=== PATIENT | female | born 1985 | race Asian ===

== ENCOUNTER 2023-07-03 21:16 | Outpatient (REF) | payer BC, SELFPAY ==
[2023-07-10 13:08] LABS: Age Gdln ACOG Testing Note (.); HPV Aptima Negative (Negative); IGP, Aptima HPV, rfx 16/18,45 Note (.)
== END 2023-07-03 21:17 | disposition home or self-care (01) ==
LOC: LAB 21:16
PROVIDERS: Visit Provider Obstetrics & Gynecology
DX: Z01.419 Encounter for gynecological examination (general) (routine) without abnormal findings (principal)
CPT/HCPCS: 87624; G0145

== ENCOUNTER 2024-07-08 21:42 | Outpatient (REF) | payer BC, SELFPAY | END 2024-07-08 21:43 | disposition home or self-care (01) | LOC: LAB 21:42 | PROVIDERS: Visit Provider Obstetrics & Gynecology | DX: Z01.419 Encounter for gynecological examination (general) (routine) without abnormal findings (principal) | CPT/HCPCS: 87624; 88175 ==

== ENCOUNTER 2025-07-13 19:13 | Outpatient (REF) | payer BC, SELFPAY ==
--- OUTSIDE RECORDS SUMMARY | 2025-07-13 13:00 | XMS_ITS | Encounter Summary ---
Author Organization [facility] Address [address] [place] [address] Care Team Providers Care Middle [employer] Technology Teacher Name Role Phone Unavailable Primary Care Provider Unavailabl e Reason for Visit * Reason Comments Well Women Visit Encounter Details Date Type Department Care Team (Late st Contact Info) Description 07/13/2025 1:00 PM EDT Office Visit [facility] [address] [facility] [place] [phone] Derrick Burnette DO [address] [facility] [address] [place] [id number] Well woman exam with routine gynecological exam Social History Tobacco Use Types Packs/Day Years Used Date Smoking Tobacco: Never Smokeless Tobacco: Never Alcohol Use Standard Drinks/Week Comments Never 0 (1 standard drink = 0.6 oz pur e alcohol) Caffeine: 1-2 cups/day Comments No Sex and Gender Information Value Date Recorded Sex Assigned at Female 07/03/2023 2:18 PM EDT Legal Sex Female 8:22 PM EDT Gender Identity Female 07/03/2023 2:18 PM EDT Sexual Orientation Not on file documented as of this encounter Last Filed Vital Signs Vital Sign Reading Time Taken Comments Blood Pressure 100/70 07/13/2025 1:20 PM EDT Pulse - - Temperature - - Respiratory Rate - - Oxygen Saturation - - Inhaled Oxygen Concentration - - Weight 56.2 kg (123 lb 12.8 oz) 07/13/2025 1:20 PM EDT Height - - Body Mass Index 21.93 07/08/2024 1:04 PM EDT documented in this encounter Progress Notes * MAHI Fink - 07/13/2025 1:00 PM EDT Reason for Appointment: Patient ID: Clover Macias is a 40 y.o. female who presents for Well Women Visit Patient presents today for Annual Exam. MEDICATIONS Current Outpatient Medications Medication Instructions Jencycla 0.35 MG tablet TAKE 1 TABLET BY MOUTH DAILY AT THE SAME TIME EACH DAY ALLERGIES No Known Allergies PROBLEMS Active Ambulatory Problems Diagnosis Date Noted No Active Ambulatory Problems Resolved Ambulatory Problems Diagnosis Date Noted No Resolved Ambulatory Problems Past Medical History: Diagnosis Date Condyloma H/O human papillomavirus infection History of abnormal cervical Pap smear 2019 HISTORY PAST MEDICAL HISTORY SOCIAL HISTORY Past Medical History: Diagnosis Date Condyloma H/O human papillomavirus infection History of abnormal cervical Pap smear 2019 Social History Tobacco Use Smoking status: Never Smokeless tobacco: Never Substance Use Topics Alcohol use: Never Comment: Caffeine: 1-2 cups/day Drug use: Never FAMILY HISTORY No family history on file. SURGICAL HISTORY Past Surgical History: Procedure Laterality Date PAP SMEAR 2019 Normal REVIEW OF SYSTEMS Review of Systems: Review of Systems Constitutional: Negative. HENT: Negative. Eyes: Negative. Respiratory: Negative. Cardiovascular: Negative. Gastrointestinal: Negative. Genitourinary: Negative. Musculoskeletal: Negative. Skin: Negative. Neurological: Negative. All other systems reviewed and are negative. Hematological: Negative. Endocrine: Negative. Allergic/Immunologic: Negative. OBJECTIVE Objective: Physical Exam Constitutional: Appearance: Normal appearance. Genitourinary: Right Adnexa: not tender and no mass present. Left Adnexa: not tender and no mass present. No cervical discharge. Breasts: Breasts are soft. Right: Normal. Left: Normal. HENT: Head: Normocephalic. Nose: Nose normal. Mouth/Throat: Mouth: Mucous membranes are moist. Cardiovascular: Rate and Rhythm: Normal rate. Pulmonary: Effort: Pulmonary effort is normal. Abdominal: General: Bowel sounds are normal. Palpations: Abdomen is soft. Musculoskeletal: General: Normal range of motion. Cervical back: Normal range of motion. Neurological: General: No focal deficit present. Mental Status: She is alert. Skin: General: Skin is warm and dry. Psychiatric: Mood and Affect: Mood normal. Vitals and nursing note reviewed. Exam conducted with a continuous crusher operator present. Vitals: Estimated body mass index is 21.93 kg/m?? as calculated from the following: Height as of 24: 5' 3 . Weight as of this encounter: 123 lb 12.8 oz. BP: 100/70 No LMP recorded (within weeks). ASSESSMENT & PLAN ICD-10-CM 1. Well woman exam with routine gynecological exam Z01.419 Pap Smear HPV DNA probe, amplified Annual Exam: Patient presents today for an annual exam. Patient states she is doing well and has no complaints. Pap was obtained without difficulty. Orders Placed This Encounter Procedures HPV DNA probe, amplified Follow Up: Patient is to return in one year for annual unless needed otherwise. Documented by MAHI Fink documented in this encounter Plan of Treatment Upcoming Encounters Date Type Department Care Team (Late st Contact Info) Description 07/18/2026 2:00 PM EDT Procedure Visit [facility] [address] [facility] [place] [address] Derrick Burnette DO [address] [place] [address] Scheduled Orders Name Type Priority Associated Diagnoses Orde r Schedule Pap Smear Pathology and Cytology Routine Well woman exam with routine gynecological exam Ordered: 07/13/2025 HPV DNA probe, amplified Microbiology Routine Well woman exam with routine gynecological exam Ordered: 07/13/2025 documented as of this encounter Visit Diagnoses Diagnosis Well woman exam with routine gynecological exam Routine gynecological examination documented in this encounter
--- OUTSIDE RECORDS SUMMARY | 2025-07-13 19:16 | XMS_ITS | Encounter Summary ---
Author Organization [facility] Address [address] [place] [address] Care Team Providers Care Commercial Drone Pilot Name Role Phone Unavailable Primary Care Provider Unavailabl e Encounter Details Date Type Department Care Team (Late Contact Info) Description 07/13/2025 Bamboo flowsheet [facility] [address] [place] [address] Derrick Burnette, DO [address], [place] [address] Social History Tobacco Use Types Packs/Day Years [...] on file documented as of this encounter Plan of Treatment Upcoming Encounters Date Type Department Care Team (Late st Contact Info) Description 07/18/2026 2:00 PM EDT Procedure Visit [facility] [address] [place] [phone] Derrick Burnette, DO [address], [id number] documented as of this encounter Visit Diagnoses Not on filedocumented in this encounter
--- OUTSIDE RECORDS SUMMARY | 2025-07-13 19:16 | XMS_ITS | Encounter Summary ---
Author Organization [facility] Address [address] [place] [address] Care Team Providers Care Disaster Recovery Analyst Name Role Phone Unavailable Primary Care Provider Unavailabl e Encounter Details Date Type Department Care Team (Late Contact Info) Description 06/30/2024 Orders Only [facility] [address] [place] [address] Mary Diaz LPN [address] [employer] [facility] [place] [facility]11 Social History Tobacco Use Types Packs/Day Years Used Date Smoking Tobacco: Never Alcohol Use Standard Drinks/Week Comments Never 0 (1 standard drink = 0.6 oz pur e alcohol) Caffeine: 1-2 cups/day Comments Unknown Sex and Gender Information Value Date Recorded Sex Assigned at Female 07/03/2023 2:18 PM EDT Legal Sex Female 8:22 PM EDT Gender Identity Female 07/03/2023 2:18 PM EDT Sexual Orientation Not on file documented as of this encounter Plan of Treatment Upcoming Encounters Date Type Department Care Team (Late st Contact Info) Description 07/18/2026 2:00 PM EDT Procedure Visit [facility] [address] [place] [address] Derrick Burnette DO [address] [facility] [place], [place] [id number] documented as of this encounter Procedures Procedure Name Priority Date/Time Associated Diagnosis Comments PAP SMEAR Routine 07/03/2023 12:00 AM EDT documented in this encounter Results * Pap Smear (07/03/2023 12:00 AM EDT) Swab Cervical swab / Unknown us [facility] CYTOLOGY ORDERABLES Final Result EXTERNAL LAB documented in this encounter Visit Diagnoses Not on filedocumented in this encounter
--- OUTSIDE RECORDS SUMMARY | 2025-07-13 19:16 | XMS_ITS | Clinical Summary ---
Author Organization [facility] Address [address] [place] [address] Care Team Providers Care Hvac Service Tech Name Role Phone Unavailable Primary Care Provider Unavailabl e Allergies No known active allergies Medications Jencycla 0.35 MG tabletIndications :Well woman exam with routine gynecological exam TAKE 1 TABLET BY MOUTH DAILY AT THE SAME TIME EACH DAY 84 tablet 3 07/05/20 25 Active norethindrone (Micronor) 0.35 MG tabletIndications :Well woman exam with routine gynecological exam Take 1 tablet (0.35 mg) by mouth 1 (one) time each day at the same time 28 tablet 12 07/08/20 24 025 Discontinued Encounters Date Type Department Care Team Description 07/13/2025 1:00 PM [place] [address] Derrick Burnette, Well woman exam with routine gynecological exam 07/13/2025 Bamboo flowsheet [facility] [address] [place] [address] Derrick Burnette DO 07/12/2025 Travel 07/04/2025 Refill [facility] [address] [place] [address] Derrick Burnette DO Well woman exam with routine gynecological exam from Last 3 Months Social History Tobacco Use Types Packs/Day Years Used Date Smoking Tobacco: Never Smokeless Tobacco: Never Tobacco Cessation:Counseling Given: Not Answered Alcohol Use Standard Drinks/Week Comments Never 0 (1 standard drink = 0.6 oz pur e alcohol) Caffeine: 1-2 cups/day Comments No Sex and Gender Information Value Date Recorded Sex Assigned at Female 07/03/2023 2:18 PM EDT Legal Sex Female 8:22 PM EDT Gender Identity Female 07/03/2023 2:18 PM EDT Sexual Orientation Not on file Last Filed Vital Signs Vital Sign Reading Time Taken Comments Blood Pressure 100/70 07/13/2025 1:20 PM EDT Pulse - - Temperature - - Respiratory Rate - - Oxygen Saturation - - Inhaled Oxygen Concentration - - Weight 56.2 kg (123 lb 12.8 oz) 07/13/2025 1:20 PM EDT Height 160 cm (5' 3 ) 07/08/2024 1:04 PM EDT Body Mass Index 21.93 07/08/2024 1:04 PM EDT Plan of Treatment Upcoming Encounters Date Type Department Care Team (Late st Contact Info) Description 07/18/2026 2:00 PM EDT Procedure Visit [facility] [address] [facility] [place] [phone] Derrick Burnette DO [address] [facility] [address] [place] [place], [place] [id number] Health Maintenance Due Date Last Done Comments Influenza Vaccine (#1) 2025 12/02/2022, 2018 Pap Smear 07/03/2026 07/03/2023, 05/22/2016 Cervical Cancer Screening 07/17/2028 HPV/Cotest 07/17/2028 07/17/2023, 0601/2021, 04/26/2020, Additional history exists Procedures Procedure Name Priority Date/Time Associated Diagnosis Comments THINPREP PAP AND HPV MRNA E6/E7 W/RFL HPV 16,18/45 Routine 07/17/2023 2:07 PM EDT Well woman exam with routine gynecological exam PAP SMEAR Routine 07/03/2023 12:00 AM EDT from Last 3 Months or Most Recently Relevant to Health Maintenance Results * THINPREP PAP AND HPV MRNA E6/E7 W/RFL HPV 16,18/45 (07/17/2023 2:07 PM EDT) Derrick Burnette DO LAB BLOOD ORDERABLES Final Resul t EXTERNAL LAB * Pap Smear (07/03/2023 12:00 AM EDT) Swab Cervical swab / Unknown [facility] CYTOLOGY ORDERABLES Final Result EXTERNAL LAB from Last 3 Months or Most Recently Relevant to Health Maintenance Insurance [facility]
--- OUTSIDE RECORDS SUMMARY | 2025-07-13 19:16 | XMS_ITS | Encounter Summary ---
Author Organization [facility] Address [address] [place] [address] Care Team Providers Care Slab Tripper Name Role Phone Unavailable Primary Care Provider Unavailabl e Encounter Details Date Type Department Care Team (Latest Contact Info) Description 07/12/2025 Travel Social History Tobacco Use Types Packs/Day Years [...] 07/18/2026 2:00 PM EDT Procedure Visit [facility] [address] [place] [phone] Derrick Burnette DO [address] [facility] [address] [place], [facility]11 documented as of this encounter Visit Diagnoses Not on filedocumented in this encounter
--- OUTSIDE RECORDS SUMMARY | 2025-07-13 19:16 | XMS_ITS | Encounter Summary ---
Author Organization [facility] Address [address] [facility] [place] [address] Care Team Providers Care Chemistry Quality Control Analyst Name Role Phone Unavailable Primary Care Provider Unavailabl e Reason for Visit * Reason Comments Med Refill Encounter Details Date Type Department Care Team (Late Contact Info) Description 07/04/2025 [facility]ill [facility] [address] [facility] [place] [address] Derrick Burnette, DO [address], [place] [address] Well woman exam with routine gynecological exam [...] Encounters Date Type Department Care Team (Late Contact Info) Description 07/18/2026 2:00 PM EDT Procedure Visit [facility] [address] [place] [address] Derrick Burnette, DO [address], [facility]11 documented as of this encounter Visit Diagnoses Diagnosis Well woman exam with routine gynecological exam Routine gynecological examination documented in this encounter
--- OUTSIDE RECORDS SUMMARY | 2025-07-13 19:18 | XMS_ITS | CCD ---
Author Organization [facility] Care Team Providers Care Supervisor Matrix Name Role Phone YOMAIRA, DR BO Consulting Unavailable YOMAIRA, DR BO Attending Unavailable YOMAIRA, DR BO Admitting Unavailable YOMAIRA, DR BO Admitting Unavailable YOMAIRA, DR BO Attending Unavailable WEST, DR PERICO Varghese Consulting Unavailable YOMAIRA, DR BO Consulting Unavailable YOMAIRA, DR BO Consulting Unavailable YOMAIRA, DR BO Admitting Unavailable YOMAIRA, DR BO Attending Unavailable ZIEBER, DR GEOVANI Novak Consulting Unavailable YOMAIRA, DR BO Consulting Unavailable YOMAIRA, DR BO Admitting Unavailable YOMAIRA, DR BO Attending Unavailable YOMAIRA, DR BO Attending Unavailable YOMAIRA, DR BO Admitting Unavailable YOMAIRA, DR BO Consulting Unavailable YOMAIRA, DR BO Attending Unavailable YOMAIRA, DR BO Admitting Unavailable YOMAIRA, DR BO Attending Unavailable YOMAIRA, DR BO Admitting Unavailable WEST, DR PERICO Varghese Consulting Unavailable YOMAIRA, DR BO Consulting Unavailable MAHI MENDOZA Consulting Unavailable YOMAIRA, DR BO Attending Unavailable YOMAIRA, DR BO Admitting Unavailable YOMAIRA, DR BO Consulting Unavailable ZIEBER, DR GEOVANI Novak Consulting Unavailable MAHI MENDOZA Consulting Unavailable YOMAIRA, DR BO Attending Unavailable YOMAIRA, DR BO Admitting Unavailable MISC, DR DON Primary Care Unavailable YOMAIRA, DR BO Consulting Unavailable HARSH MARADIAGA Consulting Unavailable YOMAIRA, DR BO Procedure Practitioner Unavailab le YOMAIRA, DR BO Attending Unavailable YOMAIRA, DR BO Admitting Unavailable YOMAIRA, DR BO Consulting Unavailable NAY, DR GEOVANI Novak Consulting Unavailable YOMAIRA, DR BO Admitting Unavailable YOMAIRA, DR BO Attending Unavailable YOMAIRA, DR BO Consulting Unavailable YOMAIRA, DR BO Attending Unavailable YOMAIRA, DR BO Admitting Unavailable YOMAIRA, DR BO Consulting Unavailable YOMAIRA, DR BO Attending Unavailable YOMAIRA, DR BO Admitting Unavailable YOMAIRA, DR BO Consulting Unavailable YOMAIRA, DR BO Consulting Unavailable YOMAIRA, DR BO Admitting Unavailable YOMAIRA, DR BO Attending Unavailable YOMAIRA, BETZY Attending Unavailable Unavailable Primary Care Provider Unavailabl e Medications Current Medications Medication Drug Class(es) Dates Sig (Normalized) Sig (Original) norethindrone 0.35 mg oral tablet (3 sources) Start: 07-05-2025 take 1 tablet by mouth once daily Jencycla 0.35 MG tablet Indications: Well woman exam with routine gynecological exam TAKE 1 TABLET BY MOUTH DAILY AT THE SAME TIME EACH DAY 84 tablet 3 07/05/2025 Active Problems Active Problems Problem Classification Problem Date Documented Date Episodic/Chronic Diabetes mellitus without complication (4 sources) Other abnormal glucose; Translations: [OTHER ABNORMAL GLUCOSE] Onset: 09-24-2022 Episodic Immunizations and screening for infectious disease (4 sources) Encounter for immunization; Translations: [Encounter for screening for human papillomavirus (HPV)] Onset: 05-24-2022 Episodic Menstrual disorders (5 sources) Irregular menstruation, unspecified; Translations: [IRREGULAR MENSTRUATION UNSPECIFIED] Onset: 05-03-2022 Chronic Other complications of (4 sources) Supervision of elderly multigravida, third trimester; Translations: [SUP ELDER MULTIGRAVIDA THIRD TRI] Onset: 11-27-2022 Episodic Other complications of (4 sources) Supervision of elderly multigravida, unspecified trimester; Translations: [SUP ELDER MULTIGRAVIDA UNS TRI] Onset: 11-20-2022 Episodic Other and delivery including normal (5 sources) Encounter for full-term uncomplicated delivery; Translations: [Single live ] Onset: 07-18-2022 Episodic Other screening for suspected conditions (not mental disorders or infectious disease) (20 sources) Encounter for screening for Streptococcus B; Translations: [Encounter for screening for diabetes mellitus] Onset: 05-22-2022 Episodic Residual codes; unclassified (1 source) 38 weeks gestation of ; Translations: [38 WEEKS GESTATION OF ] Onset: 12-11-2022 Episodic Unclassified (1 source) CONTACT W/AND (SUSP) EXPOS COVID-19; Translations: [CONTACT W/AND (SUSP) EXPOS COVID-19] Onset: 12-11-2022 Past or Other Problems Problem Classification Problem Date Documented Date Episodic/Chronic Other female genital disorders (1 source) Other specified noninflammatory disorders of vagina; Translations: [OTH SPEC NONINFLAMMATORY D/O VAGINA] Onset: 06-30-2022 Episodic Results Test Name Value Interpretation Reference Range Facility CBC AUTO DIFFon 12-02-2022 BASO # 0.1 103/ul Normal 0.0-0.1 [facility] Comment on above: Performed By: #### C BC #### [facility] [address] [place] [address] Dr. Michael Bacon Basophils/100 WBC (Bld) 0.4 % Normal 0.2-2.0 [facility] Comment on above: Performed By: #### C BC #### [facility] [address] [place] [address] Dr. Michael Bacon EO # 0.0 103/ul Normal 0.0-0.7 [facility] Comment on above: Performed By: #### C BC #### [facility] [address] [place] [address] Dr. Michael Bacon Eosinophils/100 WBC (Bld) 0.4 % Critically low 0.9-7.0 [facility] Comment on above: Performed By: #### C BC #### [facility] [address] [place] [address] Dr. Michael Bacon Erythrocyte distribution width (RBC) [Ratio] 14.4 % Normal 11.0-15.0 [facility] Comment on above: Performed By: #### C BC #### [facility] [address] [place] [address] Dr. Michael Bacon Hematocrit (Bld) [Volume fraction] 29.9 % Critically low 36.0-48.0 [facility] Comment on above: Performed By: #### C BC #### [facility] [address] [place] [address] Dr. Michael Bacon Hemoglobin (Bld) [Mass/Vol] 10.0 g/dL Critically low 12.0-16.0 [facility] Comment on above: Performed By: #### C BC #### [facility] [address] [place] [address] Dr. Michael Bacon IG # 0.12 10e3/ul Critically high 0.00-0.03 [facility] Comment on above: Performed By: #### C BC #### [facility] [address] [address] [address] Michael Bacon IG % 1.1 % Critically high 0.0-0.5 [facility] Comment on above: Performed By: #### C BC #### [facility] [address] [place] [address] Dr. Michael Bacon LYMPH # 2.0 103/ul Normal 1.2-3.8 [facility] Comment on above: Performed By: #### C BC #### [facility] [address] [place] [address] Dr. Michael Bacon Lymphocytes/100 WBC (Bld) 17.7 % Critically low 20.5-60.0 [facility] Comment on above: Performed By: #### C BC #### [facility] [address] [place] [address] Dr. Michael Bacon MANUAL DIFF REQ NO Normal [facility] Comment on above: Performed By: #### C BC #### [facility] [address] [place] [address] Dr. Michael Bacon MCH (RBC) [Entitic mass] 28.4 pg Normal 26.7-34.0 [facility] Comment on above: Performed By: #### C BC #### [facility] [address] [place] [address] Dr. Michael Bacon MCHC (RBC) [Mass/Vol] 33.4 g/dL Normal 29.9-35.2 [facility] Comment on above: Performed By: #### C BC #### [facility] [address] [place] [address] Dr. Michael Bacon MCV (RBC) [Entitic vol] 84.9 fL Normal 81.0-99.0 [facility] Comment on above: Performed By: #### C BC #### [facility] [address] [place] [address] Dr. Michael Bacon MONO # 0.7 103/ul Normal 0.3-0.8 [facility] Comment on above: Performed By: #### C BC #### [facility] [address] [place] [address] Dr. Michael Bacon Monocytes/100 WBC (Bld) 6.0 % Normal 1.7-12.0 [facility] Comment on above: Performed By: #### C BC #### [facility] [address] [place] [address] Dr. Michael Bacon NEUT # 8.3 103/ul Critically high 1.4-6.5 [facility] Comment on above: Performed By: #### C BC #### [facility] [address] [place] [address] Dr. Michael Bacon Neutrophils/100 WBC (Bld) 74.4 % Normal 43.0-75.0 [facility] Comment on above: Performed By: #### C BC #### [facility] [address] [place] [address] Dr. Michael Bacon Platelet mean volume (Bld) [Entitic vol] 9.4 fL Critically low 9.5-13.5 [facility] Comment on above: Performed By: #### C BC #### [facility] [address] [place] [address] Dr. Michael Bacon PLT 221 103/ul Normal 150-450 [facility] Comment on above: Performed By: #### C BC #### [facility] [address] [place] [address] Dr. Michael Bacon RBC 3.52 106/ul Critically low 4.20-5.40 [facility] Comment on above: Performed By: #### C BC #### [facility] [address] [place] [address] Dr. Michael Bacon WBC 11.2 103/ul Critically high 4.0-11.0 [facility] Comment on above: Performed By: #### C BC #### [facility] [address] [place] [address] Dr. Michael Bacon CBC AUTO DIFFon 12-01-2022 BASO # 0.1 103/ul Normal 0.0-0.1 [facility] Comment on above: Performed By: #### A 1C #### [facility] [address] [place] [address] Dr. Michael Bacon Basophils/100 WBC (Bld) 0.5 % Normal 0.2-2.0 [facility] Comment on above: Performed By: #### A 1C #### [facility] [address] [place] [address] Dr. Michael Bacon EO # 0.0 103/ul Normal 0.0-0.7 [facility] Comment on above: Performed By: #### A 1C #### [facility] [address] [place] [address] Dr. Michael Bacon Eosinophils/100 WBC (Bld) 0.3 % Critically low 0.9-7.0 [facility] Comment on above: Performed By: #### A 1C #### [facility] [address] [place] [address] Dr. Michael Bacon Erythrocyte distribution width (RBC) [Ratio] 14.2 % Normal 11.0-15.0 [facility] Comment on above: Performed By: #### A 1C #### [facility] [address] [place] [address] Dr. Michael Bacon Hematocrit (Bld) [Volume fraction] 33.7 % Critically low 36.0-48.0 [facility] Comment on above: Performed By: #### A 1C #### [facility] [address] [place] [address] Dr. Michael Bacon Hemoglobin (Bld) [Mass/Vol] 11.5 g/dL Critically low 12.0-16.0 [facility] Comment on above: Performed By: #### A 1C #### [facility] [address] [place] [address] Dr. Michael Bacon IG # 0.13 10e3/ul Critically high 0.00-0.03 [facility] Comment on above: Performed By: #### A 1C #### [facility] [address] [place] [address] Dr. Michael Bacon IG % 1.1 % Critically high 0.0-0.5 [facility] Comment on above: Performed By: #### A 1C #### [facility] [address] [place] [address] Dr. Michael Bacon LYMPH # 2.6 103/ul Normal 1.2-3.8 [facility] Comment on above: Performed By: #### A 1C #### [facility] [address] [place] [address] Dr. Michael Bacon Lymphocytes/100 WBC (Bld) 20.9 % Normal 20.5-60.0 [facility] Comment on above: Performed By: #### A 1C #### [facility] [address] [place] [address] Dr. Michael Bacon MANUAL DIFF REQ NO Normal [facility] Comment on above: Performed By: #### A 1C #### [facility] [address] [place] [address] Dr. Michael Bacon MCH (RBC) [Entitic mass] 29.1 pg Normal 26.7-34.0 [facility] Comment on above: Performed By: #### A 1C #### [facility] [address] [place] [address] Dr. Michael Bacon MCHC (RBC) [Mass/Vol] 34.1 g/dL Normal 29.9-35.2 [facility] Comment on above: Performed By: #### A 1C #### [facility] [address] [place] [address] Dr. Michael Bacon MCV (RBC) [Entitic vol] 85.3 fL Normal 81.0-99.0 [facility] Comment on above: Performed By: #### A 1C #### [facility] [address] [place] [address] Dr. Michael Bacon MONO # 0.8 103/ul Normal 0.3-0.8 [facility] Comment on above: Performed By: #### A 1C #### [facility] [address] [address] [address] Michael Bacon Monocytes/100 WBC (Bld) 6.2 % Normal 1.7-12.0 [facility] Comment on above: Performed By: #### A 1C #### [facility] [address] [address] [address] Michael Bacon NEUT # 8.7 103/ul Critically high 1.4-6.5 [facility] Comment on above: Performed By: #### A 1C #### [facility] [address] [address] [address] Michael Bacon Neutrophils/100 WBC (Bld) 71.0 % Normal 43.0-75.0 [facility] Comment on above: Performed By: #### A 1C #### [facility] [address] [place] [address] Dr. Michael Bacon Platelet mean volume (Bld) [Entitic vol] 9.7 fL Normal 9.5-13.5 [facility] Comment on above: Performed By: #### A 1C #### [facility] [address] [address] [address] Michael Bacon PLT 256 103/ul Normal 150-450 [facility] Comment on above: Performed By: #### A 1C #### [facility] [address] [address] [address] Michael Bacon RBC 3.95 106/ul Critically low 4.20-5.40 [facility] Comment on above: Performed By: #### A 1C #### [facility] [address] [address] [address] Michael Bacon WBC 12.2 103/ul Critically high 4.0-11.0 [facility] Comment on above: Performed By: #### A 1C #### [facility] [address] [place] [address] Dr. Michael Bacon Covid-19 PCR ([facility])on 11-03 SARS-CoV-2 (COVID-19) RNA MARY+probe Ql (Unsp spec) Not detected Normal NOT DETECTED [facility] Comment on above: Result Comment: When diagnostic testing is negative, the possibility of a false negative should be considered in the context of a patient's recent exposures and the presence of clinical signs and symptoms consistent with SARS-CoV-2. This test is not yet approved or cleared by the [place] FDA. When there are no FDA-approved or cleared tests available, and other criteria are met, FDA can make tests available under an emergency access mechanism called an Emergency Use Authorization (EUA). The EUA for this test is supported by the [place] of Health and Human Service's declaration that circumstances exist to justify the emergency use of in vitro diagnostics for the detection and/or diagnosis of the virus that causes COVID-19. This EUA will remain in effect for the duration of the COVID-19 declaration justifying emergency of IVDs, unless it is terminated or revoked by the FDA (after which the test may no longer be used). Performed By: #### C VDTB #### [facility] [address] [place] [address] Dr. Michael Bacon DRUG SCREEN RAPID (URINE)on 12-01-2022 AMP Negative Normal NEGATIVE [facility] Comment on above: Performed By: #### C BC #### [facility] [address] [place] [address] Dr. Michael Bacon BAR Negative Normal NEGATIVE [facility] Comment on above: Performed By: #### C BC #### [facility] [address] [place] [address] Dr. Michael Bacon BUP Negative Normal NEGATIVE [facility] Comment on above: Performed By: #### C BC #### [facility] [address] [place] [address] Dr. Michael Bacon BZO Negative Normal NEGATIVE [facility] Comment on above: Performed By: #### C BC #### [facility] [address] [place] [address] Dr. Michael Bacon CARMITA Negative Normal NEGATIVE [facility] Comment on above: Performed By: #### C BC #### [facility] [address] [place] [address] Dr. Michael Bacon CUT-OFFS SEE BELOW Normal [facility] Comment on above: Result Comment: AMP (Amphetamine): 500ng/mL, BAR (Barbituates): 200 ng/mL, BZO (Benzodiazepines): 150 ng/mL, BUP (Buprenorphine): 10 ng/mL, CARMITA (Cocaine): 150 ng/mL, mAMP (Methamphetamine): 500 ng/mL, MTD (Methadone): 200 ng/mL, OPI (Opiates): 100 ng/mL, OXY (Oxycodone): 100 ng/mL, PCP (Phencyclidine): 25 ng/mL, PPX (Propoxyphene): 300 ng/mL, THC (Cannabinoids): 50 ng/mL, TCA (Trycyclic Antidepressants): 300 ng/mL Performed By: #### C BC #### [facility] [address] [place] [address] Dr. Michael Bacon DRUG CUT HEADER DRUG CLASS TEST SYSTEM CUT-OFF CONCENTRATIONS ARE FOLLOWS: Normal [facility] Comment on above: Performed By: #### C BC #### [facility] [address] [place] [address] Dr. Michael Bacon mAMP Negative Normal NEGATIVE [facility] Comment on above: Performed By: #### C BC #### [facility] [address] [place] [address] Dr. Michael Bacon MTD Negative Normal NEGATIVE [facility] Comment on above: Performed By: #### C BC #### [facility] [address] [place] [address] Dr. Michael Bacon OPI Negative Normal NEGATIVE [facility] Comment on above: Performed By: #### C BC #### [facility] [address] [place] [address] Dr. Michael Bacon OXY Negative Normal NEGATIVE [facility] Comment on above: Performed By: #### C BC #### [facility] [address] [place] [address] Dr. Michael Bacon PCP Negative Normal NEGATIVE [facility] Comment on above: Performed By: #### C BC #### [facility] [address] [place] [address] Dr. Michael Bacon PPX Negative Normal NEGATIVE [facility] Comment on above: Performed By: #### C BC #### [facility] [address] [address] [address] Michael Bacon TCA Negative Normal NEGATIVE [facility] Comment on above: Performed By: #### C BC #### [facility] [address] [place], [place] [address] Dr. Michael Bacon THC Negative Normal NEGATIVE [facility] Comment on above: Performed By: #### C BC #### [facility] [address] [address] [address] Michael Bacon TYPE AND SCREENon 12-01-2022 TYPE AND SCREEN Negative Normal [facility] Comment on above: Performed By: #### T NS #### [facility] [address] [address] [address] Michael Bacon US PREG BIOPHY W NON STRESSo n 11-27-2022 US PREG BIOPHY W NON STRESS EXAMINATION: US PREG BIOPHY W NON STRESS HISTORY: Multigravida of advanced maternal age COMPARISON: No relevant comparison available. TECHNIQUE: Ultrasound biophysical profile was performed in the radiology department. FINDINGS: BREATHING MOVEMENTS: 2.0 GROSS BODY MOVEMENTS: 2.0 TONE: 2.0 QUALITATIVE AMNIOTIC FLUID VOLUME: 2.0 PRESENTATION: Cephalic HEART RATE: 157.0 bpm H.B./min AMNIOTIC FLUID VOLUME: 15.5 cm cm GESTATIONAL AGE: 38 weeks 3 days CONCLUSION: Total biophysical profile score: 8.0 Electronically authenticated by: PERICO LOBATO Date: 2022-11-27 16:32 Normal [facility] US PREG BIOPHY W NON STRESSo n 11-20-2022 US PREG BIOPHY W NON STRESS EXAMINATION: US PREG BIOPHY W NON STRESS HISTORY: Multigravida of advanced maternal age COMPARISON: No relevant comparison available. TECHNIQUE: Ultrasound biophysical profile was performed. FINDINGS: BREATHING MOVEMENTS: 2.0 GROSS BODY MOVEMENTS: 2.0 TONE: 2.0 QUALITATIVE AMNIOTIC FLUID VOLUME: 2.0 PRESENTATION: Cephalic HEART RATE: 135.7 bpm bpm. AMNIOTIC FLUID VOLUME: 19.3 cm GESTATIONAL AGE: 37 weeks 3 days CONCLUSION: Total biophysical profile score 8.0. Electronically authenticated by: GEOVANI TEE Date: 2022-11-20 20:58 Normal [facility] GROUP B STREP CULTUREon 12-0 S. agalactiae Ag Ql (Unsp spec) Culture Observations: NEGATIVE FOR GROUP B STREPTOCOCCUS. Normal [facility] Comment on above: Performed By: #### A 1C #### [facility] [address] [address] [address] Michael Bacon GTT 3 HR PREGon 09-24-2022 Glucose [Mass/Vol] 71 mg/dL Critically low 74-106 [facility] Comment on above: Performed By: #### A 1C #### [facility] [address] [address] [address] Michael Bacon Glucose [Mass/Vol] 150 mg/dL Normal [facility] Comment on above: Performed By: #### A 1C #### [facility] [address] [place] [address] Dr. Michael Bacon Glucose [Mass/Vol] 143 mg/dL Normal [facility] Comment on above: Performed By: #### A 1C #### [facility] [address] [address] [address] iMchael Bacon Glucose [Mass/Vol] 115 mg/dL Normal [facility] Comment on above: Performed By: #### A 1C #### [facility] [address] [place] [address] Dr. Michael Bacon GLUCOSE - 1HRon 09-13-2022 Glucose [Mass/Vol] 143 mg/dL Critically high 74-106 [facility] Comment on above: Performed By: #### G LU1HR #### [facility] [address] [place] [address] Dr. Michael Bacon HEMOGRAM AND PLATELon 2021 Hematocrit (Bld) [Volume fraction] 32.8 % Critically low 36.0-48.0 [facility] Comment on above: Performed By: #### H H #### [facility] [address] [place] [address] Dr. Michael Bacon Hemoglobin (Bld) [Mass/Vol] 10.7 g/dL Critically low 12.0-16.0 [facility] Comment on above: Performed By: #### H H #### [facility] [address] [address] [address] Michael Bacon MCH (RBC) [Entitic mass] 29.3 pg Normal 26.7-34.0 [facility] Comment on above: Performed By: #### H H #### [facility] [address] [address] [address] Michael Bacon MCHC (RBC) [Mass/Vol] 32.6 g/dL Normal 29.9-35.2 [facility] Comment on above: Performed By: #### H H #### [facility] [address] [address] [address] Michael Bacon MCV (RBC) [Entitic vol] 89.9 fL Normal 81.0-99.0 [facility] Comment on above: Performed By: #### H H #### [facility] [address] [address] [address] Michael Bacon PLT 241 103/ul Normal 150-450 [facility] Comment on above: Performed By: #### H H #### [facility] [address] [address] [address] Michael Bacon RBC 3.65 106/ul Critically low 4.20-5.40 [facility] Comment on above: Performed By: #### H H #### [facility] [address] [address] [address] Michael Bacon WBC 10.0 103/ul Normal 4.0-11.0 [facility] Comment on above: Performed By: #### H H #### [facility] [address] [address] [address] Michael Bacon US PREG INCOMPLETE ANATOMYon 08-16-2022 US PREG INCOMPLETE ANATOMY EXAMINATION: US PREG INCOMPLETE ANATOMY HISTORY: screening COMPARISON: No relevant comparison available. FINDINGS: position: Cephalic presentation, longitudinal lie Heart rate: 152 bpm Spine: Normal Gestational age: 23 weeks 5 days IMPRESSION: Normal spine Electronically authenticated by: PERICO LOBATO Date: 2022-08-16 17:09 Normal [facility] US PREG ANATOMY SINGLEon 08- 25-2022 US PREG ANATOMY SINGLE EXAMINATION: US PREG ANATOMY SINGLE HISTORY: anatomy study COMPARISON: No relevant comparison available. TECHNIQUE: Transabdominal sonographic examination was performed for obstetrical and evaluation. FINDINGS: Number: 1 Heart Rate: 147.0 bpm H.B. /min Amniotic Fluid Volume: Subjectively normal Placental Location: ANTERIOR with lower margin 5.9 cm from os. Geographic shaped hypoechoic area 1.8 x 1.6 x 1.4 cm within placenta favoring a venous fuentes. Cervix Length: 4.1 cm, closed. ANATOMY: Normal Structures -cerebellum, choroid plexus, cisterna magna, lateral cerebral ventricles, orbits, midline falx, hard palate, four-chamber heart, RVOT, LVOT, stomach, kidneys, bladder, umbilical cord insertion into abdomen, three-vessel cord, right upper extremity, left upper extremity, right lower extremity, left lower extremity. SUBOPTIMALLY SEEN: Spine due to position ABNORMALITIES: None BIOMETRY: BPD: 4.5 cm 19 weeks 5 days HC: 17.6 cm 20 weeks 0 days AC: 16.4 cm 21 weeks 3 days FL: 3.5 cm 21 weeks 0 days EFW:397.8 grams; 66% FL/AC: 21.3 FL/BPD: 77.0 HC/AC: 1.1 GESTATIONAL AGE: Age by EDC: 20 weeks 5 days HASMUKH by EDC: 12/08/2022 Age by current US: 20 weeks 4 days HASMUKH by current US: 12/09/2022 IMPRESSION: 1. Single live intrauterine with growth detailed above. 2. Suboptimal visualization of the spine due to position. Electronically authenticated by: GEOVANI TEE Date: 2022-07-26 16:17 Normal [facility] AFP MATERNAL FOR SPINA BIFID Aon 07-19-2022 AFP MoM 1.07 Normal [facility] Comment on above: Performed By: #### C BC #### [facility] [address] [address] [address] Michael Bacon AFP Value 64.8 ng/mL Normal [facility] Comment on above: Performed By: #### C BC #### [facility] [address] [address] [address] Michael Bacon AFP, Serum for Spina Bifida Report Normal [facility] Comment on above: Performed By: #### C BC #### [facility] [address] [address] [address] Michael Bacon Comment Comment Normal [facility] Comment on above: Result Comment: Marcio Winston, Ph.D., [facility] Director . References: Available Upon Request. . Multiples Of Median Cutoffs For AFP Elevations Leger 2.5 Black 2.8 IDD 2.0 Twins 4.5 Abbreviation Definitions IDD - Insulin Dep Diabetes OSBR - Open Spina Bifida Risk . For further inquiries contact [facility] at [phone]. . This test was developed and its performance characteristics determined by [employer]. It has not been cleared or approved by the Food and Drug Administration. Performed By: #### C BC #### [facility] [address] [place] [address] Dr. Michael Bronson Age Collection Date 19.4 weeks Normal [facility] Comment on above: Performed By: #### C BC #### [facility] [address] [address] [address] Michael Bacon Gestat, Age Based on LMP Normal [facility] Comment on above: Result Comment: Reca lculations are not recommended when gestational dating by LMP and ultrasound are within 10 days. Performed By: #### C BC #### [facility] [address] [place] [address] Dr. Michael Bacon Insulin Dep Diabetes No Normal [facility] Comment on above: Performed By: #### C BC #### [facility] [address] [place] [address] Dr. Michael Bacon Interpretation Comment Normal [facility] Comment on above: Result Comment: Inte rpretation: Screen Negative . This result is screen negative for OSB. The AFP MoM calculated is based on the gestational age provided. MS-AFP can identify up to 80% of open neural tube defects. Closed neural tube defects and some open defects may not be detected by this test. This test does not screen for Down Syndrome or Trisomy 18. If screening for Down Syndrome or Trisomy 18 is desired, contact [facility] to discuss available options. The [employer] recommends amniocentesis be offered to women age 35 and older. Performed By: #### C BC #### [facility] [address] [address] [address] Michael Bacon [age]KH [age] Normal [facility] Comment on above: Performed By: #### C BC #### [facility] [address] [address] [address] Michael Bacon Multiple Gestation No Normal [facility] Comment on above: Performed By: #### C BC #### [facility] [address] [address] [address] Michael Bacon OSBR Risk 1 [place] [address] [facility] Comment on above: Performed By: #### C BC #### [facility] [address] [place] [address] Dr. Michael Bacon PDF . [facility] Comment on above: Performed By: #### C BC #### [facility] [address] [place] [address] Dr. Michael Bacon Race Other [facility] Comment on above: Performed By: #### C BC #### [facility] [address] [place] [address] Dr. Michael Bacon Test Results: Negative [facility] Comment on above: Performed By: #### C BC #### [facility] [address] [place] [address] Dr. Michael Bacon PAP ACOG PANEL 2: 30 to 65on 07-02-2022 . . [facility] Comment on above: Result Comment: Perf ormed at: WB Performed By: #### [id number] #### [facility] [address] [place] [address] Dr. Michael Bacon Age Gdln ACOG Testing 30-65 [facility] Comment on above: Performed By: #### [id number] #### [facility] [address] [place] [address] Dr. Michael Bacon DIAGNOSIS: Comment [facility] Comment on above: Result Comment: NEGA TIVE FOR INTRAEPITHELIAL LESION OR MALIGNANCY. Performed at: WB Performed By: #### [id number] #### [facility] [address] [place] [address] Dr. Michael Bacon HPV Aptima Negative Normal Negative [facility] Comment on above: Result Comment: This nucleic acid amplification test detects fourteen high-risk HPV types (16,18,31,33,35,39,45,51,52,56,58,59,66,68) without differentiation. Performed at: =G Performed By: #### [id number] #### [facility] [address] [place] [address] Dr. Michael Bacon Methodology: Comment Normal [facility] Comment on above: Result Comment: This liquid based ThinPrep(R) pap test was screened with the use of an image guided system. Performed at: WB Performed By: #### [id number] #### [facility] [address] [place] [address] Dr. Michael Bacon Note: Comment Normal [facility] Comment on above: Result Comment: The Pap smear is a screening test designed to aid in the detection of premalignant and malignant conditions of the uterine cervix. It is not a diagnostic procedure and should not be used as the sole means of detecting cervical cancer. Both false-positive and false-negative reports do occur. . Performed at: WB Performed By: #### [id number] #### [facility] [address] [place] [address] Dr. Michael Bacon Performed by: Comment Normal [facility] Comment on above: Result Comment: Manuelito Gillespie Data Entry Technician (ASCP) Performed at: WB Performed By: #### [id number] #### [facility] [address] [place] [address] Dr. Michael Bacon Specimen adequacy: Comment Normal [facility] Comment on above: Result Comment: Sati sfactory for evaluation. No endocervical component is identified. Performed at: WB Performed By: #### [id number] #### [facility] [address] [place] [address] Dr. Michael Bacon CHLAMYDIA/GONOCOCCUS MARY (SW AB/URINE/PAPon 06-30-2022 Chlamydia trachomatis, MARY Negative Normal Negative [facility] Comment on above: Performed By: #### C T/NGNA #### [facility] [address] [address] [address] Michael Bacon Neisseria gonorrhoeae, MARY Negative Normal Negative [facility] Comment on above: Performed By: #### C T/NGNA #### [facility] [address] [address] [address] Michael Bacon VAGINITIS/VAGINOSIS DNA PROB Chago 06-29-2022 Nettie species Negative Normal Negative [facility] Comment on above: Performed By: #### A 1C #### [facility] [address] [address] [address] Michael Bacon Gardnerella vaginalis Negative Normal Negative [facility] Comment on above: Performed By: #### A 1C #### [facility] [address] [place] [address] Dr. Michael Bacon Trichomonas vaginalis Negative Normal Negative [facility] Comment on above: Performed By: #### A 1C #### [facility] [address] [address] [address] Michael Bacon HEP B SURFACE ANTIGEN SCREEN on 05-23-2022 HBsAg Screen Negative Normal Negative [facility] Comment on above: Performed By: #### C BC #### [facility] [address] [address] [address] Michael Bacon HEPATITIS C VIRUS AB W/ REFL EX QUANTon 05-23-2022 HCV AB 0.2 s/co ratio Normal 0.0-0.9 [facility] Comment on above: Performed By: #### C BC #### [facility] [address] [place] [address] Dr. Michael Bacon Interpretation: Comment Normal [facility] Comment on above: Result Comment: Nega tive Not infected with HCV, unless recent infection is suspected or other evidence exists to indicate HCV infection. Performed By: #### C BC #### [facility] [address] [place] [address] Dr. Michael Bacon HIV 1 AND 2 WITH REFLEXon HIV Screen 4th Generation wRfx Non-Reactive Normal Non Reactive [facility] Comment on above: Result Comment: HIV Negative HIV-1/HIV-2 antibodies and HIV-1 p24 antigen were NOT detected. There is no laboratory evidence of HIV infection. Performed By: #### C BC #### [facility] [address] [place] [address] Dr. Michael Bacon RPR QUANTon 05-23-2022 Rapid Plasma Reagin, Quant Non-Reactive Normal NonRea<1:1 [facility] Comment on above: Result Comment: Plea se Note: This test does not meet current guidelines for screening and diagnosis of syphilis. This test is intended for following treatment response in patients being treated for syphilis infection. To screen for syphilis infection, a reflex cascade that includes both RPR and a treponema-specific assay should be utilized, such as Treponema pallidum (Syphilis) Screening Tama (230894) or Rapid Plasma Reagin (RPR) Test With Reflex to Quantitative RPR and Confirmatory Treponema pallidum Antibodies (467013). Performed By: #### C BC #### [facility] [address] [place] [address] Dr. Michael Bacon RUBELLA AB IGGon 05-23-2022 Rubella Antibodies, IgG 19.40 index Normal Immune >0.99 [facility] Comment on above: Result Comment: Non- immune <0.90 Equivocal 0.90 - 0.99 Immune >0.99 Performed By: #### R UBIGG #### [facility] [address] [place] [address] Dr. Michael Bacon CBC AUTO DIFFon 05-22-2022 BASO # 0.1 103/ul Normal 0.0-0.1 [facility] Comment on above: Performed By: #### C BC #### [facility] [address] [place] [address] Dr. Michael Bacon Basophils/100 WBC (Bld) 0.6 % Normal 0.2-2.0 [facility] Comment on above: Performed By: #### C BC #### [facility] [address] [place] [address] Dr. Michael Bacon EO # 0.3 103/ul Normal 0.0-0.7 [facility] Comment on above: Performed By: #### C BC #### [facility] [address] [place] [address] Dr. Michael Bacon Eosinophils/100 WBC (Bld) 2.6 % Normal 0.9-7.0 [facility] Comment on above: Performed By: #### C BC #### [facility] [address] [place] [address] Dr. Michael Bacon Erythrocyte distribution width (RBC) [Ratio] 16.2 % Critically high 11.0-15.0 [facility] Comment on above: Performed By: #### C BC #### [facility] [address] [place] [address] Dr. Michael Bacon Hematocrit (Bld) [Volume fraction] 35.9 % Critically low 36.0-48.0 [facility] Comment on above: Performed By: #### C BC #### [facility] [address] [place] [address] Dr. Michael Bacon Hemoglobin (Bld) [Mass/Vol] 11.8 g/dL Critically low 12.0-16.0 [facility] Comment on above: Performed By: #### C BC #### [facility] [address] [place] [address] Dr. Michael Bacon IG # 0.06 10e3/ul Critically high 0.00-0.03 [facility] Comment on above: Performed By: #### C BC #### [facility] [address] [place] [address] Dr. Michael Bacon IG % 0.6 % Critically high 0.0-0.5 [facility] Comment on above: Performed By: #### C BC #### [facility] [address] [place] [address] Dr. Michael Bacon LYMPH # 2.0 103/ul Normal 1.2-3.8 [facility] Comment on above: Performed By: #### C BC #### [facility] [address] [place] [address] Dr. Michael Bacon Lymphocytes/100 WBC (Bld) 21.3 % Normal 20.5-60.0 [facility] Comment on above: Performed By: #### C BC #### [facility] [address] [place] [address] Dr. Michael Bacon MANUAL DIFF REQ NO Normal [facility] Comment on above: Performed By: #### C BC #### [facility] [address] [place] [address] Dr. Michael Bacon MCH (RBC) [Entitic mass] 28.3 pg Normal 26.7-34.0 [facility] Comment on above: Performed By: #### C BC #### [facility] [address] [place] [address] Dr. Michael Bacon MCHC (RBC) [Mass/Vol] 32.9 g/dL Normal 29.9-35.2 [facility] Comment on above: Performed By: #### C BC #### [facility] [address] [place] [address] Dr. Michael Bacon MCV (RBC) [Entitic vol] 86.1 fL Normal 81.0-99.0 [facility] Comment on above: Performed By: #### C BC #### [facility] [address] [place] [address] Dr. Michael Bacon MONO # 0.7 103/ul Normal 0.3-0.8 [facility] Comment on above: Performed By: #### C BC #### [facility] [address] [place] [address] Dr. Michael Bacon Monocytes/100 WBC (Bld) 7.5 % Normal 1.7-12.0 [facility] Comment on above: Performed By: #### C BC #### [facility] [address] [place] [address] Dr. Michael Bacon NEUT # 6.4 103/ul Normal 1.4-6.5 [facility] Comment on above: Performed By: #### C BC #### [facility] [address] [place] [address] Dr. Michael Bacon Neutrophils/100 WBC (Bld) 67.4 % Normal 43.0-75.0 [facility] Comment on above: Performed By: #### C BC #### [facility] [address] [address] [address] Michael Bacon Platelet mean volume (Bld) [Entitic vol] 9.0 fL Critically low 9.5-13.5 [facility] Comment on above: Performed By: #### C BC #### [facility] [address] [address] [address] Michael Bacon PLT 294 103/ul Normal 150-450 [facility] Comment on above: Performed By: #### C BC #### [facility] [address] [address] [address] Michael Bacon RBC 4.17 106/ul Critically low 4.20-5.40 [facility] Comment on above: Performed By: #### C BC #### [facility] [address] [address] [address] Michael Bacon WBC 9.5 103/ul Normal 4.0-11.0 [facility] Comment on above: Performed By: #### C BC #### [facility] [address] [address] [address] Michael Bacon CULTURE URINEon 05-22-2022 CULTURE URINE Culture Observations : LIGHT GROWTH OF MIXED GENITAL COSMO. NO POTENTIAL PATHOGENS SEEN. Normal [facility] Comment on above: Performed By: #### U RCX #### [facility] [address] [address] [address] Michael Bacon GLYCOHEMOGLOBIN A1Con 2021 ADA RECOMMENDATION SEE BELOW Normal [facility] Comment on above: Result Comment: ADA RECOMMENDED LIMIT 4.0 - 6.0 ADA THERAPEUTIC TARGET < 7.0 ACTION SUGGESTED > 7.0 Performed By: #### A 1C #### [facility] [address] [place] [address] Dr. Michael Bacon Glucose [Mass/Vol] 105 mg/dL Normal [facility] Comment on above: Performed By: #### A 1C #### [facility] [address] [place] [address] Dr. Michael Bacon HbA1c (Bld) [Mass fraction] 5.3 % Normal 4.5-6.2 [facility] Comment on above: Performed By: #### A 1C #### [facility] [address] [place] [address] Dr. Michael Bacon LORI BOX TEST PT SEND OUTo n 05-22-2022 SENT TO REF LAB 05/22/2022 Normal [facility] Comment on above: Performed By: #### C BC #### [facility] [address] [place] [address] Dr. Michael Bacon TYPE AND SCREENon 05-22-2022 TYPE AND SCREEN Negative Normal [facility] Comment on above: Performed By: #### A 1C #### [facility] [address] [place] [address] Dr. Michael Bacon US PREG TVon 05-03-2022 US PREG TV EXAMINATION: US PREG TV HISTORY: Missed period COMPARISON: No relevant comparison available. FINDINGS: GESTATIONAL SAC: Present and normal appearing. POLE: Present and normal appearing. YOLK SAC: Present. CARDIAC: Present. UTERUS: Normal size and appearance. OVARIES: Right: Corpus lutein cyst Left: Not seen. CERVIX: 4.8 cm in length and closed. CUL-DE-SAC: Normal. OTHER: None. AGE BY LMP: 8 weeks, 5 days HASMUKH BY LMP: 12/08/2022 AGE BY US CRL: 8 weeks, 3 days HASMUKH BY US CRL: 12/10/2022 IMPRESSION: 1. Single live intrauterine . Electronically authenticated by: GEOVANI TEE Date: 2022-05-03 16:25 Normal [facility] Vital Signs Date Time Vital Sign Value Performing Clinician Facility 07-13-2025 13:20-040 Body mass index (BMI) [Ratio] 21.93 kg/m2 [facility] Work Phone: [facility] 07-13-2025 13:040 Body weight 56.16 kg [employer] Work Phone: [facility] 07-13-2025 13:20040 Diastolic blood pressure 70 mm[Hg] [employer] Work Phone: [facility] 07-13-2025 13:20-0400 Systolic blood pressure 100 mm[Hg] Betzy Yomaira DO Work Phone: [facility] 07-19-2022 02:06-0400 Body weight 58.[address] BETZY BURNETTE [facility] Comment on above: Performed By: #### CBC #### [facility] [address] [address] [address] Michael Bacon Encounters Encounter Date Encounter Type Care Provider Facility Start: 07-13-2025 End: 07-13-2025 Bamboo flowsheet Betzy Yomaira DO Work Phone: [facility] Start: 07-13-2025 End: 07-13-2025 Bamboo flowsheet Betzy Yomaira DO Work Phone: [facility] Start: 07-13-2025 End: 07-13-2025 Patient encounter procedure Betzy Yomaira DO Work Phone: [facility] Work Phone: Start: 07-13-2025 End: 07-13-2025 Periodic preventive med est patient 18-39 yrs Betzy Yomaira DO Work Phone: [facility] Comment on above: Well woman exam with routine gynecological exam Start: 07-08-2024 End: 07-08-2024 ambulatory BETZY BURNETTE Not Available Start: 12-01-2022 End: 12-02-2022 Evaluation and management of inpatient DR BETZY BURNETTE Facility:[facility] Start: 11-27-2022 End: 11-27-[address] BETZY BURNETTE Facility:[facility] Start: 11-23-[address] BETZY BURNETTE Facility :[facility] Start: 11-20-2022 End: 11-20-[address] BETZY BURNETTE Facility:[facility] Start: 11-08-2022 End: 11-08-[address] BETZY BURNETTE Facility:[facility] Start: 09-24-2022 End: 09-25-[address] BETZY BURNETTE Facility:[facility] Start: 09-13-2022 End: 09-14-[address] BETZY BURNETTE Facility:[facility] Start: 08-16-2022 End: 08-17-[address] BETZY BURNETTE Facility:[facility] Start: 07-26-2022 End: 07-27-[address] BETZY BURNETTE Facility:[facility] Start: 07-17-2022 End: 07-18-[address] BETZY BURNETTE Facility:[facility] Start: 06-27-2022 End: 06-27-[address] BETZY BURNETTE Facility:[facility] Start: 05-22-2022 End: 05-23-[address] BETZY BURNETTE Facility:[facility] Start: 05-03-2022 End: 05-04-[address] BETZY BURNETTE Facility:[facility] Procedures Date Procedure Procedure Detail Performing Clinician Start: 07-03-2023 Microscopic observat ion [Identifier] in Cervix by Cyto stain Betzy Burnette DO Work Phone: Start: 12-01-2022 Drainage of Amniotic Fluid, Therapeutic from Products of Conception, Via Natural or Artificial Opening DR BETZY BURNETTE Start: 12-01-2022 Introduction of Othe r Hormone into Peripheral Vein, Percutaneous Approach DR BETZY BURNETTE Start: 12-01-2022 Delivery of Products of Conception, External Approach DR BETZY BURNETTE Plan of Treatment Date Care Activity Detail Author Start: 07-17-2028 Screening for malign ant neoplasm of cervix [facility] Start: 07-18-2026 End: 07-18-2026 Patient encounter procedure 07/18/2026 2:00 PM EDT Procedure Visit [facility] [address] [place] [id number] Betzy Burnette DO [address] [place] [address] [facility] Start: 07-03-2026 Screening for malign ant neoplasm of cervix Pap Smear [facility] Start: 08-02-2025 Influenza vaccination Influenza Vacc ine (#1) [facility] Start: 07-13-2025 End: 07-13-2025 Patient encounter procedure 07/13/2025 1:00 PM EDT Office Visit [facility] [address] [place] [address] Betzy Burnette DO [address] [place] [address] Arrived [facility] Comment on above: Arrived Cytology Cervical or vaginal smear or scraping study Pap Smear Pathology and Cytology Routine Well woman exam with routine gynecological exam Ordered: 07/13/2025 [facility] Work Phone: Comment on above: Ordered: 07/13/2025 Human papilloma viru s DNA [Presence] in Unspecified specimen by Probe with amplification HPV DNA probe, amplified Microbiology Routine Well woman exam with routine gynecological exam Ordered: 07/13/2025 [facility] Comment on above: Ordered: 07/13/2025 Immunizations Immunization Date Immunization Notes [facility] influenza virus vacc ine, unspecified formulation Betzy Burnette DO Work Phone: [facility] Payers Date Payer Category Payer [employer] [id number] 2023 Unknown [id number] 1986 Unknown [id number] .593 1986 Unknown [id number] .593 1986 Unknown [id number] 2.16.840.1.656555.3.579.2 .593 1986 Unknown [id number] 2.16.840.1.386282.3.579.2 .593 1986 Unknown [id number] 2.16.840.1.167165.3.579.2 .593 1986 Unknown [id number] 2.16.840.1.055509.3.579.2 .593 1986 Unknown [id number] 2.16.840.1.237845.3.579.2 .593 1986 Unknown [id number] 2.16.840.1.281213.3.579.2 .593 1986 Unknown [id number] 2.16.840.1.689390.3.579.2 .593 1986 Unknown [id number] 2.16.840.1.064167.3.579.2 .593 1986 Unknown [id number] 2.16.840.1.888245.3.579.2 .593 1986 Unknown [id number] 2.16.840.1.740581.3.579.2 .593 1986 Unknown [id number] 2.16.840.1.163466.3.579.2 .593 1986 Unknown [id number] 2.16.840.1.973172.3.579.2 .1259 1959 Department of [facility] e ( and others) [id number] 1959 Private Health Insurance [id number] 1958 Self-pay Unknown [id number] .593 Social History Date Type Detail Facility Start: 07-08-2024 Tobacco smoking stat [facility] Never smoked tobacco [facility] Start: 07-08-2024 Tobacco use and exposure Smokeless t obacco non-user [facility] Start: 07-08-2024 End: 07-13-2025 Alcoholic beverage intake Lifetime non-drinker (finding) [facility] Start: 07-08-2024 End: 07-13-2025 History of Social function [facility] Start: 07-08-2024 End: 07-13-2025 Tobacco use panel [facility] Start: 07-02-2023 Alcohol Comment Caffeine: 1-2 cups/d ay [facility] Start: 1985 Sex assigned at Female [facility] Start: 07-03-2023 Gender identity Identifies as female gender (finding) [facility] History of Present illness Narrative 07-13-2025 MAHI Fink - 07/13/2025 1:00 PM EDT Note Date & Type Note Facility 07-13-2025 History of Presen t illness Narrative Reason for Appointment: Patient ID: Clover Macias [...] nursing note reviewed. Exam conducted with a ski lift operator present. Vitals: Estimated body mass index is 21.93 kg/m as calculated from the following: Height as [...] by MAHI Fink documented in this encounter [facility] Evaluation note Note Date & Type Note Facility Evaluation note Diagnosis Well woman exam with routine gynecological exam Routine gynecological examination documented in this encounter [facility] Summary Purpose Family History No Family History Records FoundNo Family History Records Found Advance Directives No Advanced Directives Records FoundNo Advanced Directives Records Found Additional Source Comments INFORMATION SOURCE (unrecogn ized section and content) DATE CREATED AUTHOR 12/12/2022 [facility] DATE CREATED AUTHOR 'S ORGANELIZABETH ATMELISSA 07/10/2024 [facility] Reason for Visit (unrecogniz ed section and content) Reason Comments Well Women Visit FOR RECORDS PERTAINING TO PATIENTS WHO ARE OR HAVE BEEN ENROLLED IN A CHEMICAL DEPENDENCY/SUBSTANCEABUSE PROGRAM, SOME INFORMATION MAY BE OMITTED. This clinical summary was aggregated from multiple sources. Caution should be exercised in using it in the provision of clinical care. This summary normalizes information from multiple sources, and as a consequence, information in this document may materially change the coding, format and clinical context of patient data. In addition, data may be omitted in some cases. CLINICAL DECISIONS SHOULD BE BASED ON THE PRIMARY CLINICAL RECORDS. [facility]. provides no warranty or guarantee of the accuracy or completeness of information in this document.
== END 2025-07-13 19:14 | disposition home or self-care (01) ==
LOC: LAB 19:13
PROVIDERS: Visit Provider Obstetrics & Gynecology
DX: Z01.419 Encounter for gynecological examination (general) (routine) without abnormal findings (principal)
CPT/HCPCS: 87624; 88175